=== PATIENT | male | born 1970 | race African-American/Black ===

== ENCOUNTER 2020-06-15 22:53 | Emergency (ER) | payer OTHER, MEDICARE ==
[~2020-06-15] VITALS: Ht 180.3 cm; Wt 111.0 kg
[2020-06-15 23:30] LABS: ANION GAP 7 mmol/L (5-15); CALCIUM 8.6 mg/dL (8.5-10.1); CHLORIDE 109 mmol/L (98-107); CREATININE 1.17 mg/dL (0.7-1.3)
[2020-06-15 23:44] LABS: BASOPHILS % (AUTO) 1 % (0-1); EOSINOPHILS % (AUTO) 1 % (1-7); LYMPHOCYTES % (AUTO) 17 % (22-44); MEAN CORPUSCULAR HEMOGLOBIN 16.7 pg (27.5-34.5); MEAN PLATELET VOLUME 8.5 fL (7.4-10.4); MONOCYTES % (AUTO) 10 % (2-9); NEUTROPHILS % (AUTO) 71 % (42-75); PLATELET COUNT 373 x10^3/uL (130-400); RED BLOOD COUNT 4.62 x10^6/uL (4.38-5.82); RED CELL DISTRIBUTION WIDTH 21.1 % (9.4-14.8)
[2020-06-16] LABS: MEAN CORPUSCULAR HGB CONC 29.5 g/dL (33.2-36.2)
[2020-06-16 00:39] LABS: ANISOCYTOSIS 2+; MD MORPH REVIEW ONLY
[2020-06-16 00:40] LABS: <PLATELET ESTIMATE> ADEQUATE; HYPOCHROMIA 3+; LARGE PLATELETS 1+; MICROCYTOSIS 3+; OVALOCYTES 2+; POLYCHROMASIA 1+
[2020-06-16 02:02] LABS: MICROSCOPIC INDICATED
[2020-06-16 02:27] VITALS: BP 125/81
--- NOTE | 2020-06-16 02:31 | NUR ---
Note jian in EDM - 06/16/20 at 0303 by [email or web address] PT HAD REFUSED O2 VIA NC EARLIER. SPO2 DROPPED TO 78% ON RA WHILE RESTING. O2 APPLIED. HR GOING UP TO 130s-140s NOW. ERP NOTIFIED.
[2020-06-16] MEDS ORDERED: CEFDINIR 300 MG CAPSULE ONE (02:41)
[2020-06-16] MEDS ORDERED: ACETAMINOPHEN 500 MG TABLET ONE (02:41)
--- NOTE | 2020-06-16 02:50 | NUR ---
D/C INSTRUCTIONS, MEDS & F/U APPT RV'WD WITH PT, HE VERBALIZES UNDERSTANDING. RX GIVEN X2. PT WHEELED HIMSELF OUT OF ED VIA WC WITH .
[2020-06-16] MEDS ORDERED: ACETAMINOPHEN 500 MG TABLET PO ONE (03:00)
[2020-06-16] MEDS ORDERED: CEFDINIR 300 MG CAPSULE PO ONE (03:00)
== END 2020-06-16 03:00 | disposition home or self-care (01) ==
LOC: ED 06-16 02:45
DX: N10 Acute pyelonephritis (principal); N39.0 Urinary tract infection, site not specified; D53.9 Nutritional anemia, unspecified; E11.9 Type 2 diabetes mellitus without complications
CPT/HCPCS: 36415; 80048; 81001; 85025; 87077; 87086; 87186; 93005; 99284